=== PATIENT | male | born 1960 | race Caucasian/White ===

== ENCOUNTER 2016-06-15 06:46 | Day surgery (SDC) | payer OTHER ==
[2016-06-11 18:14] VITALS: BMI 30.8
[2016-06-15] MEDS ORDERED: PROPOFOL 20 ML ONE ×3 (08:40→09:35)
[2016-06-15] MEDS ORDERED: BUPIVACAINE HCL/EPINEPHRINE/PF 30 ML VIAL IJ ONE (09:02)
[2016-06-15] MEDS ORDERED: MIDAZOLAM HCL 2 MG/2 ML SINGLE DOSE VIAL ONE (09:12)
[2016-06-15] MEDS ORDERED: ceFAZolin SODIUM 1 GM VIAL ONE (09:20)
--- NOTE | 2016-06-15 10:04 | DS ---
Physical Examination Vital Signs: Vital Signs Temperature 98.8 F 06/15/16 07:23 Pulse Rate 64 06/15/16 07:23 Respiratory Rate 16 06/15/16 07:23 Blood Pressure 143/85 06/15/16 07:23 O2 Sat by Pulse Oximetry (%) 97 06/15/16 07:29 Discharge Summary Reason For Visit: MEDIAL MENISCAL TEAR , LEFT KNEE Condition: Good - Instructions Diet, Activity, Other Instructions: Post Operative Instructions: Knee Arthroscopy Dr Kieran Vallejo 1. Pain following an arthroscopy is variable. Some patients will have more pain than others. You have been provided with a prescription for medication that contains a narcotic. You are not allowed to drive while on this medication. You should NOT take Tylenol (Acetaminophen) when taking the pain medication ( it will result in an overdose). Feel free to take medications such as Ibuprofen or Naprosyn in addition to the pain medicine if you do not have any problems with the NSAID class of medications. 2. You should are allowed to remove the bandages and shower in 24 hours unless directed otherwise. You are not allowed to bathe or go swimming until the sutures are removed. Put band-aids on the sutures after your shower and do not put any creams or lotions over the incisions. 3. You are allowed to put all your weight on the leg and bend your knee. 4. Apply ice to the knee for 15 min every hour or so. You may continue this for as many days as you like. 5. Please call the office to schedule a visit to have your sutures removed. 6. If for any reason you believe you may have an infection or are concerned, please feel free to call me. I can be reached through our office number 24 hours a day. 7. Please call our office with any questions; we will review the surgical findings during your post operative visit. Disposition: HOME - Home Medications Comprehensive Discharge Medication List: Ambulatory Orders Amlodipine Besylate/Benazepril [Lotrel 5-20 mg Capsule] 1 each PO DAILY Atenolol [Tenormin -] 25 mg PO DAILY 03/31/13 Fenofibrate Nanocrystallized [Tricor] 145 mg PO DAILY 03/31/13 Omeprazole [Prilosec (RX)] 20 mg PO DAILY 03/31/13 Rosuvastatin Calcium [Crestor] 20 mg PO DAILY 03/31/13
--- NOTE | 2016-06-15 10:04 | OP ---
Operative Note - Note: Operative Date: 06/15/16 Pre-Operative Diagnosis: LEft knee MMT, anterior OA, synovitis Operation: LKA, chondroplasty, synovectomy, partial menisectomy, meniscal repair Surgeon: Kieran Vallejo Anesthesia: General Operative Report Dictated: Yes
[2016-06-15] MEDS ORDERED: oxyCODONE HCL 5 MG TABLET ONE (10:05)
[2016-06-15 11:45] VITALS: TEMP 97.5
[2016-06-15 11:51] VITALS: BP 110/67; PULSE 66
[2016-06-15] MEDS ORDERED: ONDANSETRON 4 MG/2 ML VIAL IVPUSH PRN (11:57)
[2016-06-15] MEDS ORDERED: oxyCODONE HCL 5 MG TABLET PO PRN ×2 (11:57)
[2016-06-15] MEDS ORDERED: LACTATED RINGERS SOLUTION 1,000 ML IV SCH (12:00)
--- NOTE | 2016-06-20 13:41 | PATH ---
Surgical Pathology Report Patient Name: ADIN PADILLA Med. Rec. #: [id number] /Age/Gender: 1960 (Age: 56) / M Account: [id number] Location: [facility] Taken: 06/15/2016 Received: 06/15/2016 Reported: 06/20/2016 Physicians: Kieran Vallejo M.D. Specimen(s) Received LEFT KNEE SHAVINGS Clinical History Medial meniscal tear left knee Final Diagnosis KNEE, LEFT, ARTHROSCOPIC SHAVINGS: FIBROSYNOVIAL AND FIBROCARTILAGINOUS TISSUE. Electronically Signed Joann Leiva M.D. Gross Description Received in formalin, labeled "left knee shavings," is a 2.5 x 2.0 x 0.3 cm. aggregate of bond-yellow soft tissue fragments. A associate financial representative portion is submitted in one cassette. 06/15/201606/15/2016
== END 2016-06-15 10:45 | disposition home or self-care (01) ==
LOC: FASU 06:46
PROVIDERS: ATTEND Orthopaedic Surgery
PROC: 0SBD4ZZ Excision of Left Knee Joint, Percutaneous Endoscopic Approach (ICD-10-PCS; principal; 2016-06-15 09:31)
DX: S83.242A Other tear of medial meniscus, current injury, left knee, initial encounter (principal); X58.XXXA Exposure to other specified factors, initial encounter; Y93.9 Activity, unspecified; Y92.9 Unspecified place or not applicable; M67.52 Plica syndrome, left knee; M94.8X8 Other specified disorders of cartilage, other site
CPT/HCPCS: 29879; 29882; G0289; 88304-TC

== ENCOUNTER 2022-06-20 07:11 | Day surgery (SDC) | payer OTHER, BC ==
[2022-06-14 14:13] VITALS: BMI 32.3
[2022-06-20] MEDS ORDERED: BUPIVACAINE LIPOSOME/PF (EXPAREL) 266 MG/20 ML VIAL ONE (09:29)
[2022-06-20] MEDS ORDERED: DEXAMETHASONE SOD PHOSPHATE 4 MG/1 ML VIAL ONE ×2 (09:29→10:05)
[2022-06-20] MEDS ORDERED: ONDANSETRON 4 MG/2 ML VIAL ONE ×2 (09:29→10:05)
[2022-06-20] MEDS ORDERED: BUPIVACAINE HCL/PF 0.5% (5MG/ML) 10 ML VIAL ONE (09:30)
[2022-06-20] MEDS ORDERED: MIDAZOLAM HCL 2 MG/2 ML SINGLE DOSE VIAL ONE ×2 (09:31→10:58)
[2022-06-20] MEDS ORDERED: FENTANYL CITRATE/PF 50 MCG/ML VIAL ONE ×3 (09:32→13:02)
[2022-06-20] MEDS ORDERED: TRANEXAMIC ACID 1000 MG/10 ML VIAL IVPUSH ONE (09:58)
[2022-06-20] MEDS ORDERED: CEFAZOLIN 2 GM in DEXTROSE 5%-WATER - 50 ML IVPB ONE (09:58)
[2022-06-20] MEDS ORDERED: SUCCINYLCHOLINE CHLORIDE 200 MG/10 ML SYRINGE ONE (10:05)
[2022-06-20] MEDS ORDERED: ceFAZolin SODIUM 1 GM VIAL ONE (10:05)
[2022-06-20] MEDS ORDERED: PROPOFOL 60 ML ONE (10:05)
[2022-06-20] MEDS ORDERED: TRANEXAMIC ACID 1000 MG/10 ML VIAL ONE (10:05)
[2022-06-20] MEDS ORDERED: PROPOFOL 20 ML ONE (11:42)
[2022-06-20] MEDS ORDERED: PROMETHAZINE HCL 25 MG/1 ML VIAL IVPB PRN (12:30)
[2022-06-20] MEDS ORDERED: LACTATED RINGERS SOLUTION 1,000 ML IV SCH ×2 (12:30→12:45)
[2022-06-20] MEDS ORDERED: ONDANSETRON 4 MG/2 ML VIAL IVPUSH PRN ×2 (12:30→12:35)
[2022-06-20] MEDS ORDERED: MAGNESIUM HYDROX 2400MG/30ML ORAL SUSPENSION 30 ML CUP PO PRN (12:35)
[2022-06-20] MEDS ORDERED: MAG HYDROX/AL HYDROX/SIMETH 30 ML UNIT-DOSE CUP PO PRN (12:35)
[2022-06-20] MEDS ORDERED: DEXAMETHASONE SOD PHOSPHATE 4 MG/1 ML VIAL IVPUSH ONE (12:41)
[2022-06-20] MEDS: ACETAMINOPHEN 1000 MG/100 ML BAG IVPB SCH ×2 (12:45→18:11)
[2022-06-20] MEDS ORDERED: oxyCODONE HCL 5 MG TABLET PO PRN (12:49)
[2022-06-20] MEDS: oxyCODONE HCL 5 MG TABLET PO PRN ×3 (14:02→21:11)
[2022-06-20] MEDS: CEFAZOLIN SODIUM 2 GM in DEXTROSE 5%-WATER 100 ML IVPB SCH (17:35)
[2022-06-20] MEDS: CELECOXIB 200 MG CAPSULE PO SCH (21:12)
[2022-06-20] MEDS: ASPIRIN 81 MG CHEWABLE TABLETS PO SCH (21:12)
[2022-06-20] MEDS: SENNOSIDES/DOCUSATE COMBO (SENNA PLUS) TABLET (UD) PO SCH (21:13)
[2022-06-20] MEDS ORDERED: GABAPENTIN 300 MG CAPSULE PO SCH (22:00)
[2022-06-21] MEDS: ACETAMINOPHEN 1000 MG/100 ML BAG IVPB SCH ×2 (00:25→06:45)
[2022-06-21 01:05] VITALS: RESP 18
[2022-06-21] MEDS: oxyCODONE HCL 5 MG TABLET PO PRN ×2 (01:36→11:44)
[2022-06-21] MEDS: CEFAZOLIN SODIUM 2 GM in DEXTROSE 5%-WATER 100 ML IVPB SCH (01:36)
[2022-06-21 06:40] VITALS: TEMP 97.8
[2022-06-21 09:04] LABS: HEMATOCRIT 35.5 % (35.4-49); HEMOGLOBIN 12.5 G/dL (11.7-16.9); MCH 32.7 pg (25.7-33.7); MCHC 35.3 g/dl (32.0-35.9); MEAN CELL VOLUME 92.7 fl (80-96); MEAN PLT VOLUME 7.9 fl (7.5-11.1); PLATELET COUNT 257.5 10^3/uL (134-434); RBC 3.83 10^6/uL (4.00-5.60); RDW 12.9 % (11.9-15.9); WHITE BLOOD COUNT 10.3 10^3/uL (4.0-10.8)
[2022-06-21 09:09] LABS: CALCIUM 8.3 mg/dl (8.5-10); CREATININE 1.4 mg/dl (0.55-1.3)
[2022-06-21] MEDS: SENNOSIDES/DOCUSATE COMBO (SENNA PLUS) TABLET (UD) PO SCH (09:17)
[2022-06-21] MEDS: ASPIRIN 81 MG CHEWABLE TABLETS PO SCH (09:17)
[2022-06-21] MEDS: CELECOXIB 200 MG CAPSULE PO SCH (09:17)
[2022-06-21 09:22] VITALS: BP 145/68; PULSE 80
[2022-06-21] MEDS ORDERED: FENOFIBRIC ACID 135 MG CAP PO SCH (10:00)
[2022-06-21] MEDS ORDERED: PANTOPRAZOLE 20 MG TABLET PO SCH (10:00)
[2022-06-21] MEDS ORDERED: ATENOLOL 50 MG TABLET (FP) PO SCH (10:00)
[2022-06-21] MEDS ORDERED: DEXAMETHASONE SOD PHOSPHATE 4 MG/1 ML VIAL IVPUSH ONE (10:00)
[2022-06-21] MEDS ORDERED: FENOFIBRATE NANOCRYSTALLIZED 145 MG PO SCH (10:00)
[2022-06-21] MEDS ORDERED: LISINOPRIL 10 MG TABLET PO SCH (10:00)
[2022-06-21] MEDS ORDERED: amLODIPine BESYLATE 5 MG TABLET (FP) PO SCH (10:00)
[2022-06-21] MEDS ORDERED: PATIENT'S OWN MEDICATION (NON-FORMULARY) (Omeprazole Pediatric Solution 20 MG Capsule.Dr) PO SCH (10:00)
[2022-06-21] MEDS ORDERED: PATIENT'S OWN MEDICATION (NON-FORMULARY) (Amlodipine Besylate/Benazepril [Lotrel 5-10 Mg C PO SCH (10:00)
[2022-06-21] MEDS ORDERED: ROSUVASTATIN CA 20 MG TABLET PO SCH (22:00)
== END 2022-06-21 12:46 | disposition home or self-care (01) ==
LOC: FASUSAT 07:11 → FM/S 13:49 → FASUSAT 06-21 12:46
PROVIDERS: ATTEND Orthopaedic Surgery
PROC: 0SRD0J9 Replacement of Left Knee Joint with Synthetic Substitute, Cemented, Open Approach (ICD-10-PCS; principal; 2022-06-20 10:27)
DX: M17.12 Unilateral primary osteoarthritis, left knee (principal)
CPT/HCPCS: 27447; C1776; 36415; 73560-TC-LT-FY; 80048; 85027; 94760; 97010-GP; 97116-GP; 97162-GP; C1889